=== PATIENT | female | born 1960 | race Caucasian/White ===

== ENCOUNTER 2021-03-30 23:17 | Emergency (ER) | payer OTHER ==
[~2021-03-30] VITALS: Ht 175.3 cm; Wt 111.1 kg
[2021-03-31 00:35] LABS: Source, Urine Clean Catch
[2021-03-31 00:38] LABS: Bilirubin, Urine Neg (Neg); Blood, Urine Neg (Neg); Glucose Qualitative, Urine Neg (Neg); Ketones, Urine Neg (Neg); Leukocyte Esterase, Urine Neg (Neg); Nitrite, Urine Neg (Neg); Protein, Urine Neg (Neg); Specific Gravity, Urine 1.005 (1.003-1.022); Urobilinogen, Urine NORM (Normal)
[2021-03-31 00:42] LABS: Appearance, Urine Clear (Clear); Color, Urine Yellow (P-Yellow)
[2021-03-31] MEDS ORDERED: PREGABALIN75 MG PO (03:38)
[2021-03-31] MEDS ORDERED: DULOXETINE HCL40 M1 PO (03:38)
[2021-03-31] MEDS ORDERED: CELEXA40 M1 PO (03:40)
[2021-03-31 04:09] LABS: BASOPHILS ABSOLUTE AUTO 0.02 K/mm3 (0.00-0.23); BASOPHILS PERCENT AUTO 0 % (0-2); EOSINOPHILS ABSOLUTE AUTO 0.04 K/mm3 (0.00-0.68); EOSINOPHILS PERCENT AUTO 1 % (0-6); Hemoglobin 11.1 g/dL (11.5-16.0); IMMATURE GRAN ABSOLUTE AUTO 0.02 K/mm3 (0.00-0.10); IMMATURE GRAN PERCENT AUTO 0 % (0-1); LYMPHOCYTES ABSOLUTE AUTO 0.77 K/mm3 (0.84-5.20); LYMPHOCYTES PERCENT AUTO 13 % (21-46); MONOCYTES ABSOLUTE AUTO 0.43 K/mm3 (0.16-1.47); MONOCYTES PERCENT AUTO 7 % (4-13); Mean Corpuscular HGB 30.4 pg (26.0-34.0); Mean Corpuscular HGB Conc 33.6 g/dL (31.5-36.5); Mean Corpuscular Volume 90 fL (80-100); Mean Platelet Volume 9.6 fL (9.1-12.4); NEUTROPHILS ABSOLUTE AUTO 4.71 K/mm3 (1.96-9.15); NEUTROPHILS PERCENT AUTO 79 % (41-73); Platelet Count 181 K/mm3 (150-400); RDW Coefficient Variation 12.4 % (11.7-14.2); RDW Standard Deviation 41.1 fL (35.1-46.3); Red Blood Cell Count 3.65 M/mm3 (3.80-5.20); White Blood Cell Count 5.99 K/mm3 (4.00-11.30)
[2021-03-31 04:31] LABS: Albumin, Blood 4.4 g/dL (3.4-5.0); Albumin/Globulin Ratio 1.4 (0.8-1.8); Bilirubin, Total 0.8 mg/dL (0.1-1.0); Bun/Creatinine Ratio 11.3 (12.0-20.0); Calcium, Blood 8.7 mg/dL (8.5-10.1); Creatinine, Blood 1.51 mg/dL (0.40-1.00); Globulin, Blood 3.1 g/dL (2.2-4.0); Potassium, Blood 3.9 mmol/L (3.5-5.5); Total Protein, Blood 7.5 g/dL (6.4-8.2)
== END 2021-03-31 08:08 | disposition home or self-care (01) ==
LOC: ER 23:17
PROVIDERS: Student in an Organized Health Care Education/Training Program
DX: N13.2 Hydronephrosis with renal and ureteral calculous obstruction (principal); Z88.8 Allergy status to other drugs, medicaments and biological substances
CPT/HCPCS: 74176; 80053; 81003; 83880; 85025; 96374; 99284; J1885; J7030

== ENCOUNTER 2022-02-07 15:33 | Inpatient (IN) | payer OTHER ==
[~2022-02-07] VITALS: Ht 175.3 cm; Wt 116.8 kg
[~2022-02-07 15:33] MED LIST: CELEXA40 M1 PO; DULOXETINE HCL40 M1 PO; PREGABALIN75 MG PO
[2022-02-07 17:36] LABS: BASOPHILS ABSOLUTE AUTO 0.01 K/mm3 (0.00-0.23); BASOPHILS PERCENT AUTO 0 % (0-2); EOSINOPHILS PERCENT AUTO 0 % (0-6); Hematocrit 28.3 % (33.0-51.0); Hemoglobin 10.2 g/dL (11.5-16.0); IMMATURE GRAN ABSOLUTE AUTO 0.01 K/mm3 (0.00-0.10); IMMATURE GRAN PERCENT AUTO 0 % (0-1); LYMPHOCYTES ABSOLUTE AUTO 0.77 K/mm3 (0.84-5.20); LYMPHOCYTES PERCENT AUTO 17 % (21-46); MONOCYTES ABSOLUTE AUTO 0.32 K/mm3 (0.16-1.47); MONOCYTES PERCENT AUTO 7 % (4-13); Mean Corpuscular HGB 30.4 pg (26.0-34.0); Mean Corpuscular Volume 85 fL (80-100); Mean Platelet Volume 9.9 fL (9.1-12.4); NEUTROPHILS ABSOLUTE AUTO 3.52 K/mm3 (1.96-9.15); NEUTROPHILS PERCENT AUTO 76 % (41-73); Platelet Count 193 K/mm3 (150-400); RDW Coefficient Variation 11.3 % (11.7-14.2); RDW Standard Deviation 35.1 fL (35.1-46.3); Red Blood Cell Count 3.35 M/mm3 (3.80-5.20); White Blood Cell Count 4.63 K/mm3 (4.00-11.30)
[2022-02-07 17:49] LABS: U Amphetamine Screen Not Detected; U Barbituate Screen Not Detected; U Benzodiazapine Screen Not Detected; U Buprenorphine Screen Not Detected; U Cannabinoids Screen DETECTED; U Cocaine Screen Not Detected; U Methadone Screen Not Detected; U Methamphetamine Screen Not Detected; U Opiates Screen Not Detected; U Oxycodone Screen Not Detected; U Phencyclidine Screen Not Detected; U Propoxyphene Screen Not Detected
[2022-02-07 17:53] LABS: Albumin/Globulin Ratio 1.5 (0.8-1.8); Bilirubin, Total 0.7 mg/dL (0.1-1.0); Bun/Creatinine Ratio 18.4 (12.0-20.0); Calcium, Blood 8.6 mg/dL (8.5-10.1); Creatinine, Blood 0.98 mg/dL (0.40-1.00); Globulin, Blood 2.7 g/dL (2.2-4.0); Potassium, Blood 4.1 mmol/L (3.5-5.5); Total Protein, Blood 6.7 g/dL (6.4-8.2)
[2022-02-07 18:22] LABS: Source, Urine Clean Catch
[2022-02-07 18:34] LABS: Appearance, Urine Clear (Clear); Bilirubin, Urine Neg (Neg); Blood, Urine Neg (Neg); Color, Urine Yellow (P-Yellow); Glucose Qualitative, Urine Neg (Neg); Ketones, Urine 2+ (Neg); Leukocyte Esterase, Urine Neg (Neg); Nitrite, Urine Neg (Neg); Protein, Urine Neg (Neg); Specific Gravity, Urine 1.015 (1.003-1.022); Urobilinogen, Urine NORM (Normal)
[2022-02-07 18:43] LABS: Osmolality, Urine 287 mos/kg (15-1400)
[2022-02-07 18:59] LABS: Sodium, Urine, Random 58 mmol/L (20-110)
[2022-02-07] MEDS ORDERED: Vistaril50 MG PO (20:28)
[2022-02-07 20:51] LABS: Source, Urine Foley catheter
[2022-02-07 20:59] LABS: Appearance, Urine Hazy (Clear); Bilirubin, Urine Neg (Neg); Blood, Urine 1+ (Neg); Glucose Qualitative, Urine Neg (Neg); Ketones, Urine 2+ (Neg); Leukocyte Esterase, Urine Neg (Neg); Nitrite, Urine Neg (Neg); Protein, Urine Neg (Neg); Urobilinogen, Urine NORM (Normal)
--- NOTE | 2022-02-07 21:00 | NUR ---
PT ADMITTED TO ROOM ICU 3 FROM ED AT 1945. PT SLIDE TRANSFERRED TO BED FROM [facility]. PT IN POST ICTAL STATE FROM REPORTED SEIZURE IN ED. PT ARRIVES WITH 22 GAUGE IV IN RIGHT WRIST. WILL PLACE POWERGLIDE FOR LAB DRAWS AND FOR 3 PERCENT NS INFUSION. DAVID CATHETER PLACE FOR ACCURATE I/0'S AND FOR SPOT CHECKS OF OSMOLARITIES IF ORDERED. PT'S TO ROOM. ANSWERS QUESTIONS FOR PT. WILL REVIEW CHART AND PLAN OF CARE FOR THIS PT.
[2022-02-07 21:11] LABS: Color, Urine Pale Yellow (P-Yellow); White Blood Cells, Urine 0-2 /hpf (0-5)
[2022-02-07 21:12] LABS: Bacteria Few /hpf; Squamous Epithelial Cells Few /hpf (Few)
[2022-02-07 21:56] LABS: Base Excess Venous -0.1 mmol/L; Bicarbonate Venous 24.5 mmol/L (24.0-30.0); PCO2 Venous 35.7 mmHg (38-42); PO2 Venous 90.8 mmHg (38-42); pH Blood Venous 7.44 (7.34-7.37)
[2022-02-07 22:11] LABS: Bun/Creatinine Ratio 15.9 (12.0-20.0); Calcium, Blood 8.5 mg/dL (8.5-10.1); Creatinine, Blood 1.07 mg/dL (0.40-1.00); Potassium, Blood 3.8 mmol/L (3.5-5.5)
--- NOTE | 2022-02-08 01:01 | NUR ---
HAVE DONE ROUTINE SODIUM CHECKS. DR WHITE HAS ORDERED FOR 3 PERCENT SALINE TO BE STOPPED SECONDARY TO 122 NA LEVEL. WILL CONTINUE TO MONITOR WITH SERIAL NA LEVELS PER DR WHITE. PT HAS BECOME MORE ALERT AND IS ABLE TO ANSWER SOME QUESTIONS. PT REMAINS FORGETFUL AND NEEDS TO BE REORIENTED. PT HAS HAD 2200 ML URINE OUTPUT WHICH WAS EMPTIED. CLEAR IN COLOR. LIGHT YELLOW. WILL CONTINUE TO MONITOR PT.
[2022-02-08 02:12] LABS: Bun/Creatinine Ratio 13.9 (12.0-20.0); Calcium, Blood 8.5 mg/dL (8.5-10.1); Creatinine, Blood 1.08 mg/dL (0.40-1.00); Potassium, Blood 3.7 mmol/L (3.5-5.5)
--- NOTE | 2022-02-08 05:24 | NUR ---
PT'S MENTATION HAS IMPROVED THROUGH THE NIGHT. IS ABLE TO STATE SHE IS AT [facility]. HAVE CONTINUED WITH Q 2 HOUR SODIUM CHECKS. HAVE SPOKEN TO DR BERRIOS THIS AM WITH UPDATE. NO NEW ORDERS. HAVE ASSISTED PT WITH TURNS AT TIME. PT HAS HAD > 4 LITERS OUTPUT FROM CATHETER. WILL CONTINUE TO MONITOR PT, AND WILL REPORT OFF TO ONCOMING RN.
[2022-02-08 06:33] LABS: BASOPHILS PERCENT AUTO 0 % (0-2); EOSINOPHILS ABSOLUTE AUTO 0.01 K/mm3 (0.00-0.68); EOSINOPHILS PERCENT AUTO 0 % (0-6); Hematocrit 27.6 % (33.0-51.0); Hemoglobin 9.9 g/dL (11.5-16.0); IMMATURE GRAN ABSOLUTE AUTO 0.01 K/mm3 (0.00-0.10); IMMATURE GRAN PERCENT AUTO 0 % (0-1); LYMPHOCYTES ABSOLUTE AUTO 0.78 K/mm3 (0.84-5.20); LYMPHOCYTES PERCENT AUTO 19 % (21-46); MONOCYTES ABSOLUTE AUTO 0.39 K/mm3 (0.16-1.47); MONOCYTES PERCENT AUTO 10 % (4-13); Mean Corpuscular HGB 30.7 pg (26.0-34.0); Mean Corpuscular HGB Conc 35.9 g/dL (31.5-36.5); Mean Corpuscular Volume 85 fL (80-100); NEUTROPHILS ABSOLUTE AUTO 2.93 K/mm3 (1.96-9.15); NEUTROPHILS PERCENT AUTO 71 % (41-73); Platelet Count 172 K/mm3 (150-400); RDW Coefficient Variation 11.2 % (11.7-14.2); RDW Standard Deviation 34.8 fL (35.1-46.3); Red Blood Cell Count 3.23 M/mm3 (3.80-5.20); White Blood Cell Count 4.12 K/mm3 (4.00-11.30)
[2022-02-08 06:53] LABS: Bun/Creatinine Ratio 13.3 (12.0-20.0); Calcium, Blood 8.6 mg/dL (8.5-10.1); Creatinine, Blood 1.13 mg/dL (0.40-1.00); Potassium, Blood 3.6 mmol/L (3.5-5.5)
[2022-02-08 08:34] LABS: Bun/Creatinine Ratio 12.8 (12.0-20.0); Calcium, Blood 8.7 mg/dL (8.5-10.1); Creatinine, Blood 1.17 mg/dL (0.40-1.00); Potassium, Blood 3.5 mmol/L (3.5-5.5)
--- NOTE | 2022-02-08 08:42 | NUR ---
ASSUMED CARE OF PT, REPORT RCV'D FROM LETI LAWRENCE. PT ALERT AND ORIENTED, PLEASANT AND COOPERATIVE WITH CARE. D5@75 ML/HR INFUSING. DAVID PATENT AND DRAINING LARGE AMOUNT OF PALE YELLOW URINE. PER PT, SHE DRINKS "AT LEAST A GALLON" OF WATER DAILY FOLLOWING HER GASTRIC BYPASS SURGERY. SHE AND HER "TIED ONE ON" AND DRANK VODKA LEADING TO NAUSEA AND DECREASE IN APPETITE. PT DENIES DIZZINESS/BLURRED VISION AT THIS TIME, REPORT OF SLIGHT HEADACHE. PT REQUESTING DAVID TO BE REMOVED AND TO GET UP INTO CHAIR. PT CHANGED TO PCU STATUS. VSS AT THIS TIME.
--- NOTE | 2022-02-08 17:36 | NUR ---
SHIFT SUMMARY NO ACUTE CHANGES T/O SHIFT. PT REMAINS ALERT AND ORIENTED, INDEPENDENT IN ROOM. EATING AND DRINKING WELL. NO COMPLAINTS OF N/V, DIZZINESS. NO AMS. D5@75 ML/HR. VSS T/O SHIFT. WILL REPORT TO ONCOMING NURSE.
--- NOTE | 2022-02-08 20:45 | NUR ---
ASSUMED CARE RECEIVED REPORT FROM LETI DAVILA AT 1900. PT IS FULLY A/O, INDEPENDENT IN ROOM AND MAKES NEEDS KNOWN WELL. SHE IS ON ROOM AIR, SPO2 100%, HR IS NSR, WITH RATE IN 60-70'S. BP STABLE. SODIUM LEVEL DRAWN AT 191 AND WAS 132. D5 CONTINUES AT 75ML/HR. CALL TO DR. WHITE REGARDING PT'S ANXIETY WITH NOT BEING ABLE TO TAKE REGULAR MEDS OF CYMBALTA AND LYRICA FOR CHRONIC SCIATICA PAIN, XANAX 0.5MG PO BID PRN ORDERED. PT CURRENTLY RESTING IN BED AND STATES WILL CALL WHEN READY TO TAKE XANAX IF NEEDED. ORDERS REVIEWED
--- NOTE | 2022-02-08 23:44 | NUR ---
REASSESSMENT PT UP TO TOILET INDEPENDENTLY WITH STEADY GAIT THREE TIMES THUS FAR. SHE REMAINS A/O X4, USING CALL LIGHT APPROPRIATELY AND EXPRESSES NEEDS WELL. HR CONTINUES SR, RATE IN 60-70'S ON MONITOR. BP NORMOTENSIVE, AFEBRILE, RR 14 WITH SPO2 100% ON ROOM AIR. SHE IS CURRENTLY SLEEPING, CALL LIGHT IN REACH. 2300 SODIUM LEVEL DRAWN AND IS 131, D5 CONTINUES AT 75ML/HR.
[2022-02-09 03:58] LABS: Bun/Creatinine Ratio 10.4 (12.0-20.0); Calcium, Blood 8.7 mg/dL (8.5-10.1); Creatinine, Blood 1.25 mg/dL (0.40-1.00); Potassium, Blood 3.7 mmol/L (3.5-5.5)
--- NOTE | 2022-02-09 06:18 | NUR ---
PT STATES SHE SLEPT WELL THROUGHOUT THE SHIFT AFTER TAKING THE XANAX. SHE WAS ABLE TO REMAIN INDEPENDENT IN THE ROOM, AND WAS UP TO THE TOILET BY SELF. HR REMAINED SR WITH RATE IN 60-70'S, BP NORMOTENSIVE. SPO2 100% WHEN SPOT CHECKED Q4H ON ROOM AIR. MOST RECENT SODIUM LEVEL OF 134 AROUND 0330. WILL REPORT TO ONCOMING SHIFT WHEN AVAILABLE.
[2022-02-09] MEDS ORDERED: Vistaril25 MG PO (14:06)
[2022-02-09] MEDS ORDERED: HYDHCL25 PO (14:07)
[2022-02-09 16:31] LABS: Bun/Creatinine Ratio 10.9 (12.0-20.0); Calcium, Blood 9.1 mg/dL (8.5-10.1); Creatinine, Blood 1.19 mg/dL (0.40-1.00); Potassium, Blood 4.2 mmol/L (3.5-5.5)
== END 2022-02-09 16:41 | disposition home or self-care (01) | DRG 640 ==
LOC: ER 15:33 → ICUW 19:42 → ICUE 19:42
PROVIDERS: Emergency Medicine; Student in an Organized Health Care Education/Training Program; ADMIT Family Medicine
DX: E87.1 Hypo-osmolality and hyponatremia (principal); G92.8 Other toxic encephalopathy; R47.01 Aphasia; G25.81 Restless legs syndrome; Z96.612 Presence of left artificial shoulder joint; Z96.611 Presence of right artificial shoulder joint; N18.30 Chronic kidney disease, stage 3 unspecified; R41.3 Other amnesia; E66.9 Obesity, unspecified; R56.9 Unspecified convulsions; F32.A Depression, unspecified; D53.9 Nutritional anemia, unspecified; R63.1 Polydipsia; Z98.84 Bariatric surgery status; Z79.899 Other long term (current) drug therapy; Z68.32 Body mass index [BMI] 32.0-32.9, adult
CPT/HCPCS: 36415; 51703; 70450; 71046; 80048; 80053; 81001; 81003; 82533; 82570; 82803; 82947; 83935; 84133; 84156; 84295; 84300; 84443; 85025; 93005; 93010; 99285-25; A9270; C1751; J1650; J7070

== ENCOUNTER → 2022-02-14 | Outpatient (CLI) | payer OTHER ==
[~2022-02-14] MED LIST changes: +HYDHCL25 PO; +Vistaril25 MG PO; +Vistaril50 MG PO
== END | disposition home or self-care (01) ==
LOC: LAB SHORT 17:00 → LAB 17:00
DX: N30.01 Acute cystitis with hematuria (principal)
CPT/HCPCS: 87077; 87086; 87186

== ENCOUNTER → 2022-05-01 | Outpatient (CLI) | payer OTHER ==
[2022-05-01 19:07] LABS: Bun/Creatinine Ratio 15.5 (12.0-20.0); Calcium, Blood 9.8 mg/dL (8.5-10.1); Creatinine, Blood 1.29 mg/dL (0.40-1.00); Potassium, Blood 4.2 mmol/L (3.5-5.5)
== END | disposition home or self-care (01) ==
LOC: LAB 15:00 → LAB SHORT 15:00
PROVIDERS: Hospitalist
DX: E87.1 Hypo-osmolality and hyponatremia (principal)
CPT/HCPCS: 80048

== ENCOUNTER → 2022-05-07 | Outpatient (CLI) | payer OTHER | END | disposition home or self-care (01) | LOC: LAB SHORT 17:25 → LAB 17:25 | DX: R30.0 Dysuria (principal) | CPT/HCPCS: 87077; 87086; 87186 ==

== ENCOUNTER → 2022-05-14 | Outpatient (CLI) | payer OTHER | END | disposition home or self-care (01) | LOC: LAB 18:10 → LAB SHORT 18:10 | DX: N39.0 Urinary tract infection, site not specified (principal) | CPT/HCPCS: 87086 ==

== ENCOUNTER → 2022-06-14 | Outpatient (CLI) | payer OTHER | END | disposition home or self-care (01) | LOC: LAB SHORT 17:54 | DX: N30.00 Acute cystitis without hematuria (principal) | CPT/HCPCS: 87077; 87086; 87186 ==

== ENCOUNTER → 2022-09-05 | Outpatient (CLI) | payer OTHER ==
[2022-09-05 18:08] LABS: BASOPHILS ABSOLUTE AUTO 0.04 K/mm3 (0.00-0.23); BASOPHILS PERCENT AUTO 1 % (0-2); EOSINOPHILS ABSOLUTE AUTO 0.06 K/mm3 (0.00-0.68); EOSINOPHILS PERCENT AUTO 2 % (0-6); Hematocrit 36.9 % (33.0-51.0); Hemoglobin 12.3 g/dL (11.5-16.0); IMMATURE GRAN PERCENT AUTO 0 % (0-1); LYMPHOCYTES ABSOLUTE AUTO 1.28 K/mm3 (0.84-5.20); LYMPHOCYTES PERCENT AUTO 34 % (21-46); MONOCYTES ABSOLUTE AUTO 0.26 K/mm3 (0.16-1.47); MONOCYTES PERCENT AUTO 7 % (4-13); Mean Corpuscular HGB 30.8 pg (26.0-34.0); Mean Corpuscular HGB Conc 33.3 g/dL (31.5-36.5); Mean Corpuscular Volume 93 fL (80-100); Mean Platelet Volume 11.3 fL (9.1-12.4); NEUTROPHILS ABSOLUTE AUTO 2.12 K/mm3 (1.96-9.15); NEUTROPHILS PERCENT AUTO 56 % (41-73); Platelet Count 174 K/mm3 (150-400); RDW Coefficient Variation 12.5 % (11.7-14.2); RDW Standard Deviation 42.3 fL (35.1-46.3); Red Blood Cell Count 3.99 M/mm3 (3.80-5.20); White Blood Cell Count 3.76 K/mm3 (4.00-11.30)
[2022-09-05 18:50] LABS: Magnesium, Blood 2.2 mg/dL (1.6-2.4)
[2022-09-05 20:16] LABS: Alanine Aminotransfer (ALT/SGP 50 U/L (12-78); Albumin, Blood 4.1 g/dL (3.4-5.0); Albumin/Globulin Ratio 1.5 (0.8-1.8); Alk Phos 168 U/L (50-136); Anion Gap 7 mmol/L (6-16); Aspartate Aminotrans (AST/SGOT 38 U/L (12-37); Bilirubin, Total 0.5 mg/dL (0.1-1.0); Blood Urea Nitrogen 43 mg/dL (8-24); Bun/Creatinine Ratio 25.3 (12.0-20.0); CO2, Blood 26 mmol/L (21-32); Calcium, Blood 9.2 mg/dL (8.5-10.1); Chloride, Blood 107 mmol/L (98-108); Globulin, Blood 2.8 g/dL (2.2-4.0); Glomerular Filtration Rate 33 (60-); Glucose, Blood 100 mg/dL (70-99); Potassium, Blood 4.5 mmol/L (3.5-5.5); Sodium, Blood 140 mmol/L (136-145); Total Protein, Blood 6.9 g/dL (6.4-8.2)
== END | disposition home or self-care (01) ==
LOC: LAB SHORT 14:55 → LAB 14:55
PROVIDERS: Hospitalist
DX: N18.31 Chronic kidney disease, stage 3a (principal); K90.89 Other intestinal malabsorption
CPT/HCPCS: 80053; 82306; 82607; 83735; 85025

== ENCOUNTER → 2022-10-21 | Outpatient (CLI) | payer OTHER | END | disposition home or self-care (01) | LOC: LAB SHORT 10:30 → LAB 10:30 | PROVIDERS: Internal Medicine Nephrology | DX: N18.2 Chronic kidney disease, stage 2 (mild) (principal); D63.1 Anemia in chronic kidney disease; N25.81 Secondary hyperparathyroidism of renal origin; E55.9 Vitamin D deficiency, unspecified; E78.00 Pure hypercholesterolemia, unspecified; R76.9 Abnormal immunological finding in serum, unspecified; R94.5 Abnormal results of liver function studies; R94.6 Abnormal results of thyroid function studies | CPT/HCPCS: 81050 ==

== ENCOUNTER → 2022-10-25 | Outpatient (CLI) | payer OTHER | END | disposition home or self-care (01) | LOC: LAB SHORT 16:20 → LAB 16:20 | DX: R30.0 Dysuria (principal) | CPT/HCPCS: 87077; 87086; 87186 ==

== ENCOUNTER → 2022-11-29 | Outpatient (CLI) | payer OTHER | END | disposition home or self-care (01) | LOC: LAB SHORT 08:30 | PROVIDERS: Internal Medicine Nephrology | DX: N18.2 Chronic kidney disease, stage 2 (mild) (principal); D63.1 Anemia in chronic kidney disease; E55.9 Vitamin D deficiency, unspecified; E78.00 Pure hypercholesterolemia, unspecified; R76.9 Abnormal immunological finding in serum, unspecified; R94.5 Abnormal results of liver function studies; R94.6 Abnormal results of thyroid function studies | CPT/HCPCS: 81050; 82530 ==

== ENCOUNTER 2023-01-10 07:01 | Day surgery (SDC) | payer OTHER ==
[~2023-01-10] VITALS: Ht 172.7 cm; Wt 96.9 kg
[~2023-01-10 07:01] MED LIST changes: +ACET500 PO; +BUPR150ER PO; +Demeclocycline300 MG PO; +FAMO20 PO; +Potassium Citra5 MEQ PO; +SODCHL1 PO
--- NOTE | 2023-01-10 07:12 | NUR ---
01/10/23 0712 REJI HANCOCK TETRECAINE: 0708 PLEDGIT: [id number]
[2023-01-10] MEDS ORDERED: DERMACINRX FOL1 EAC2 (07:18)
== END 2023-01-10 08:48 | disposition home or self-care (01) ==
LOC: ORSCSDS 07:01
PROVIDERS: Ophthalmology
PROC: 08DJ3ZZ Extraction of Right Lens, Percutaneous Approach (ICD-10-PCS; principal; 2023-01-10 08:00)
DX: H25.11 Age-related nuclear cataract, right eye (principal); H52.201 Unspecified astigmatism, right eye; N18.30 Chronic kidney disease, stage 3 unspecified; F11.20 Opioid dependence, uncomplicated; Z79.899 Other long term (current) drug therapy
CPT/HCPCS: J2001; J2250; J3010; J3301; J7040; V2632

== ENCOUNTER 2023-02-05 14:20 | Day surgery (SDC) | payer OTHER ==
[~2023-02-05] VITALS: Ht 175.3 cm; Wt 84.1 kg
[~2023-02-05 14:20] MED LIST changes: +DERMACINRX FOL1 EAC2
--- NOTE | 2023-02-05 14:56 | NUR ---
02/05/23 1456 Shira Leyva TETRACAINE DROP IN 1448, PLEDGET PLACED AT 1450. PT TOLERATED PLACEMENT WELL.
[2023-02-05 16:49] VITALS: BP 100/71
--- NOTE | 2023-02-05 16:57 | NUR ---
02/05/23 1657 Haritha Bolanos IV DISCONTINUED, SITE ASSESSMENT COMPLETE, WNL
== END 2023-02-05 16:52 | disposition home or self-care (01) ==
LOC: ORSCSDS 14:20
PROVIDERS: Ophthalmology
PROC: 08RK3JZ Replacement of Left Lens with Synthetic Substitute, Percutaneous Approach (ICD-10-PCS; principal; 2023-02-05 15:30)
DX: H25.12 Age-related nuclear cataract, left eye (principal); H52.202 Unspecified astigmatism, left eye; Z96.1 Presence of intraocular lens; G47.33 Obstructive sleep apnea (adult) (pediatric); N18.30 Chronic kidney disease, stage 3 unspecified; Z87.891 Personal history of nicotine dependence; Z79.899 Other long term (current) drug therapy
CPT/HCPCS: J2001; J2250; J3010; J3301; J7040; V2632

== ENCOUNTER → 2023-11-06 | Outpatient (CLI) | payer OTHER | END | disposition home or self-care (01) | LOC: LAB 13:35 → LAB SHORT 13:35 | DX: N39.0 Urinary tract infection, site not specified (principal) | CPT/HCPCS: 87086 ==

== ENCOUNTER → 2023-12-03 | Outpatient (CLI) | payer OTHER | LOC: LAB SHORT 18:40 | DX: E53.8 Deficiency of other specified B group vitamins (principal) | CPT/HCPCS: 82607; 82746 ==

== ENCOUNTER → 2024-04-01 | Outpatient (CLI) | payer OTHER | END | disposition home or self-care (01) | LOC: LAB SHORT 16:37 | DX: N39.0 Urinary tract infection, site not specified (principal) | CPT/HCPCS: 87077; 87086; 87186 ==

== ENCOUNTER → 2024-04-16 | Outpatient (CLI) | payer OTHER | LOC: LAB SHORT 15:56 → LAB 15:56 | DX: N39.0 Urinary tract infection, site not specified (principal) | CPT/HCPCS: 87086 ==

== ENCOUNTER → 2024-11-05 | Outpatient (CLI) | payer OTHER ==
[2024-11-05 17:30] LABS: BASOPHILS ABSOLUTE AUTO 0.02 K/mm3 (0.00-0.23); BASOPHILS PERCENT AUTO 1 % (0-2); EOSINOPHILS ABSOLUTE AUTO 0.04 K/mm3 (0.00-0.68); EOSINOPHILS PERCENT AUTO 1 % (0-6); Hematocrit 33.2 % (33.0-51.0); Hemoglobin 10.9 g/dL (11.5-16.0); IMMATURE GRAN PERCENT AUTO 0 % (0-1); LYMPHOCYTES ABSOLUTE AUTO 0.98 K/mm3 (0.84-5.20); LYMPHOCYTES PERCENT AUTO 29 % (21-46); MONOCYTES ABSOLUTE AUTO 0.24 K/mm3 (0.16-1.47); MONOCYTES PERCENT AUTO 7 % (4-13); Mean Corpuscular HGB 32.8 pg (26.0-34.0); Mean Corpuscular HGB Conc 32.8 g/dL (31.5-36.5); Mean Corpuscular Volume 100 fL (80-100); Mean Platelet Volume 11.4 fL (9.1-12.4); NEUTROPHILS ABSOLUTE AUTO 2.06 K/mm3 (1.96-9.15); NEUTROPHILS PERCENT AUTO 62 % (41-73); Platelet Count 144 K/mm3 (150-400); RDW Coefficient Variation 13.4 % (11.7-14.2); RDW Standard Deviation 48.8 fL (35.1-46.3); Red Blood Cell Count 3.32 M/mm3 (3.80-5.20); White Blood Cell Count 3.34 K/mm3 (4.00-11.30)
[2024-11-05 19:02] LABS: Percent Saturation 28.5 % (15.0-50.0)
== END | disposition home or self-care (01) ==
LOC: LAB SHORT 15:45
PROVIDERS: Internal Medicine Hematology & Oncology
DX: E61.1 Iron deficiency (principal)
CPT/HCPCS: 82728; 83540; 83550; 85025

== ENCOUNTER → 2025-08-18 | Outpatient (CLI) | payer MEDICARE ==
[2025-08-18 17:56] LABS: Ferritin, Serum 420.0 ng/mL (8-252); Total Iron Binding Capacity 257.0 ug/dL (250-450)
== END ==
LOC: LAB 15:17 → LAB SHORT 15:17
PROVIDERS: Internal Medicine Hematology & Oncology
DX: D50.0 Iron deficiency anemia secondary to blood loss (chronic) (principal)
CPT/HCPCS: 82728; 83540; 83550

== ENCOUNTER → 2025-08-22 | Outpatient (CLI) | payer MEDICARE | LOC: LAB SHORT 16:21 → LAB 16:21 | DX: N39.0 Urinary tract infection, site not specified (principal) | CPT/HCPCS: 87077; 87086; 87186 ==

== ENCOUNTER → 2025-08-27 | Outpatient (CLI) | payer MEDICARE | LOC: LAB 09:00 → LAB SHORT 09:00 | DX: N39.0 Urinary tract infection, site not specified (principal) | CPT/HCPCS: 87086 ==